=== PATIENT | male | born 1985 | race American Indian/Alaskan Native ===

== ENCOUNTER 2018-08-17 07:26 | Emergency (ER) | payer SELFPAY ==
[2018-08-17 07:34] VITALS: BP 126/81
[2018-08-17] MEDS ORDERED: NITRO-BID 2% TP ONE (08:29)
--- NOTE | 2018-08-17 08:30 | Emergency Department Report ---
HPI - General Chief Complaint: Rectal Pain Time Seen by Provider: 08/17/18 08:26 - HPI HPI: 33 y.o aam, with long h/o hemorrroids, has been using preparation H, without relief. now with severe rectal pain, worsening from baseline, no bleeding, intermittent constipation. no fever, chills or night sweats. ED Past Medical Hx - Past Medical History Previous Medical History?: Yes Additional medical history: Hyperthyroidism - Surgical History Past Surgical History?: No - Social History Smoking Status: Current Every Day Smoker Substance Use Type: Marijuana, Other - Medications Home Medications: Home Medications Medication Instructions Recorded Confirmed Last Taken Type Hydrocortisone [Anusol-Hc] 1 applic RC 5XD #1 tube 08/17/18 Unknown Rx Sulfamethoxazole/Trimethoprim 1 each PO BID #20 tablet 08/17/18 Unknown Rx [Bactrim DS TAB] traMADol [Ultram] 50 mg PO Q6HR PRN #8 tablet 08/17/18 Unknown Rx ED Review of Systems ROS: Stated complaint: HEMORRHID PAIN Other details as noted in HPI Comment: All other systems reviewed and negative Constitutional: denies: see HPI Eyes: denies: eye pain ENT: denies: ear pain Respiratory: denies: see HPI, cough, orthopnea Cardiovascular: denies: chest pain, edema, syncope Gastrointestinal: constipation, other (ext. hemorrhoids,). denies: abdominal pain Skin: denies: rash Hematological/Lymphatic: denies: easy bleeding Physical Exam - Physical Exam Vital Signs: Vital Signs 08/17/18 07:31 Temperature 97.6 F Pulse Rate 75 Respiratory 18 Rate Blood Pressure 126/81 O2 Sat by Pulse 99 Oximetry Physical Exam: ED Physical Exam - General Limitations: No Limitations General appearance: alert, in no apparent distress - Head Head exam: Present: atraumatic, normocephalic - Eye Eye exam: Present: normal appearance - ENT ENT exam: Present: mucous membranes moist - Neck Neck exam: Present: normal inspection - Respiratory Respiratory exam: Present: normal lung sounds bilaterally. Absent: respiratory distress - Cardiovascular Cardiovascular Exam: Present: regular rate, normal rhythm. Absent: systolic murmur, diastolic murmur, rubs, gallop - GI/Abdominal GI/Abdominal exam: Present: soft, normal bowel sounds. Absent: tenderness, rebound, bruit, hernia - Rectal Rectal exam: Present: ext hemorrhoids large - Extremities Exam Extremities exam: Present: normal inspection, full ROM - Back Exam Back exam: Present: normal inspection, full ROM. Absent: tenderness, CVA tenderness (R), CVA tenderness (L), muscle spasm, paraspinal tenderness, vertebral tenderness, rash noted - Neurological Exam Neurological exam: Present: alert, oriented X3, CN II-XII intact, normal gait, reflexes normal - Psychiatric Psychiatric exam: Present: normal affect, normal mood - Skin Skin exam: Present: warm, dry, intact, normal color. Absent: rash ED Course Vital Signs 08/17/18 07:31 Temperature 97.6 F Pulse Rate 75 Respiratory 18 Rate Blood Pressure 126/81 O2 Sat by Pulse 99 Oximetry Critical care attestation.: If time is entered above; I have spent that time in minutes in the direct care of this critically ill patient, excluding procedure time. ED Disposition Clinical Impression: Hemorrhoid prolapse Disposition: [id number] TO HOME OR SELFCARE Is pt being admited?: No Does the pt Need Aspirin: No Condition: Stable Instructions: Hemorrhoids (ED) Prescriptions: Hydrocortisone [Anusol-Hc] 1 applic RC 5XD #1 tube Sulfamethoxazole/Trimethoprim [Bactrim DS TAB] 1 each PO BID #20 tablet traMADol [Ultram] 50 mg PO Q6HR PRN #8 tablet PRN Reason: Pain Referrals: DANIEL STEVENS MD [Staff Physician] - 3-5 Days [facility] SRIKANTH SAAVEDRA MD [Primary Care Provider] - 3-5 Days
[2018-08-17] MEDS ORDERED: XYLOCAINE TOPICAL 5% TP ONE (09:00)
[2018-08-17] MEDS ORDERED: XYLOCAINE TOPICAL 2% 5ML TP ONE (09:01)
== END 2018-08-17 09:38 | disposition home or self-care (01) ==
LOC: ED 07:26
DX: K64.4 Residual hemorrhoidal skin tags (principal); K59.00 Constipation, unspecified; F17.200 Nicotine dependence, unspecified, uncomplicated; F12.10 Cannabis abuse, uncomplicated; E03.9 Hypothyroidism, unspecified
CPT/HCPCS: 99282